=== PATIENT | male | born 1945 | race Caucasian/White ===

== ENCOUNTER 2021-08-17 08:43 | Inpatient (IN) | payer MEDICARE, OTHER ==
[~2021-08-17] VITALS: Ht 182.9 cm; Wt 79.4 kg
[2021-08-17] MEDS ORDERED: Morphine 4mg Syringe 4 MG/ML INJ IV STA (08:58)
[2021-08-17] MEDS ORDERED: ONDANSETRON HCL INJ 2MG/ML 2ML 2 MG/ML VIAL IV PRN (09:00)
[2021-08-17] MEDS ORDERED: NITROGLYCERIN 2% OINT 1 GM PKT TOP ONE (09:00)
[2021-08-17] MEDS: VALSARTAN 160 MG TAB PO SCH (09:27)
[2021-08-17] MEDS ORDERED: ACETAMINOPHEN 325 MG TAB PO ONE (09:30)
[2021-08-17] MEDS ORDERED: ACETAMINOPHEN 325 MG TAB ONE (09:42)
[2021-08-17] MEDS ORDERED: ONDANSETRON HCL INJ 2MG/ML 2ML 2 MG/ML VIAL ONE (09:43)
[2021-08-17] MEDS ORDERED: Morphine 4mg Syringe 4 MG/ML INJ ONE (09:43)
[2021-08-17] MEDS ORDERED: NITROGLYCERIN 2% OINT 1 GM PKT ONE (09:43)
[2021-08-17] MEDS ORDERED: ASPIRIN 325 MG TAB ONE (09:44)
[2021-08-17] MEDS ORDERED: ASPIRIN 81 MG CHEW TAB ONE (09:44)
[2021-08-17] MEDS ORDERED: FAMOTIDINE 20 MG/2 ML VIAL IV ONE ×2 (09:45→10:00)
[2021-08-17] MEDS ORDERED: ASPIRIN 81 MG CHEW TAB PO ONE (10:00)
[2021-08-17 12:53] VITALS: BP 138/76
[2021-08-17 13:32] VITALS: BP 138/76
[2021-08-17] MEDS ORDERED: FLOMAX0.4 MG PO (14:43)
[2021-08-17] MEDS ORDERED: JANUMET 50-1,01 EACH PO (14:43)
[2021-08-17] MEDS ORDERED: NORVASC5 MG PO (14:43)
[2021-08-17] MEDS ORDERED: LIPITOR20 MG PO (14:43)
[2021-08-17 16:11] LABS: CREATINE KINASE MB 64.9 ng/mL (0-5.0)
[2021-08-17] MEDS ORDERED: CLOPIDOGREL BISULFATE 75 MG TAB PO ONE (16:30)
[2021-08-17 16:32] VITALS: BP 117/75
[2021-08-17] MEDS ORDERED: ENOXAPARIN SOD INJ 60 MG/0.6 ML SYR SC ONE (17:00)
[2021-08-17] MEDS ORDERED: ENOXAPARIN SOD INJ 40 MG/0.4 ML SYR SC SCH (17:00)
[2021-08-17 20:00] VITALS: BP 129/81
[2021-08-17 21:00] VITALS: BP 129/81
[2021-08-17 21:58] LABS: CREATINE KINASE MB 77.5 ng/mL (0-5.0)
[2021-08-17] MEDS: ATORVASTATIN 40 MG TAB PO SCH (22:16)
[2021-08-18] VITALS (10 sets, daily range): BP systolic 101–141; BP diastolic 70–85
[2021-08-18 05:21] LABS: BASOPHILS % 0.3 % (0.0-1.0); EOSINOPHILS # (AUTO) 0.1 (0.0-0.4); HEMOGLOBIN 13.5 g/dL (14.0-18.0); LYMPHOCYTES # (AUTO) 2.3 (1.0-3.2); LYMPHOCYTES % 23.7 % (18.0-39.1); MEAN CORPUSCULAR HEMOGLOBIN 31.3 pg (28-32); MEAN CORPUSCULAR HGB CONC 34.6 g/dL (31-35); MEAN CORPUSCULAR VOLUME 90.5 fL (81-99); MONOCYTES # (AUTO) 0.8 (0.2-0.8); MONOCYTES % 7.7 % (4.4-11.3); NEUTROPHILS # (AUTO) 6.6 (2.1-6.9); NEUTROPHILS % 66.9 % (38.7-80.0); PLATELET COUNT 164 x10e3/uL (140-360); RED BLOOD COUNT 4.31 x10e6/uL (4.3-5.7)
[2021-08-18 05:46] LABS: ALBUMIN 3.7 g/dL (3.5-5.0); ALBUMIN/GLOBULIN RATIO 1.2 (0.8-2.0); ANION GAP 11.9 mmol/L (8-16); CHOL/HDL RATIO 3.5 (3.9-4.7); CREATININE, SERUM 1.09 mg/dL (0.72-1.25); POTASSIUM 3.9 mmol/L (3.5-5.1)
[2021-08-18 06:08] LABS: THYROID STIMULATING HORMONE 1.413 uIU/mL (0.350-4.940)
[2021-08-18] MEDS: ASPIRIN 81 MG ENTERIC COATED PO SCH (09:00)
[2021-08-18] MEDS ORDERED: FENTANYL CITRATE/PF 100MCG/2 ML INJ ONE (09:44)
[2021-08-18] MEDS ORDERED: MIDAZOLAM HCL 2 MG/2 ML VIAL ONE (09:44)
[2021-08-18] MEDS ORDERED: HEPARIN SOD (PORCINE) 1000 UNIT/ML 30ML ONE (09:44)
[2021-08-18] MEDS ORDERED: HEPARIN SOD/SOD CHLORIDE 2,000 ML ONE (09:45)
[2021-08-18] MEDS ORDERED: NITROGLYCERIN/D5W 200 MCG/ML 250 ML ONE (09:45)
[2021-08-18] MEDS ORDERED: SODIUM CHLORIDE 0.9% 1000ML 1,000 ML ONE (09:45)
[2021-08-18] MEDS ORDERED: IOPAMIDOL 370 MG/ML 200 ML INFUS..BTL INJ ONE ×2 (09:45→11:13)
[2021-08-18] MEDS ORDERED: LIDOCAINE HCL 2% LOCAL 20 ML VIAL ONE (09:45)
[2021-08-18] MEDS ORDERED: SODIUM CHLORIDE 0.9% 50ML 50 ML ONE (11:03)
[2021-08-18] MEDS ORDERED: BIVALRIUDIN 250 MG/VIAL VIAL IV ONE (11:03)
[2021-08-18] MEDS ORDERED: CLOPIDOGREL BISULFATE 75 MG TAB ONE (11:26)
[2021-08-18] MEDS ORDERED: ASPIRIN 81 MG CHEW TAB ONE (11:26)
[2021-08-18] MEDS ORDERED: SITAGLIPTIN PHOS PO SCH (17:00)
[2021-08-18] MEDS ORDERED: METFORMIN HCL PO SCH (17:00)
[2021-08-18] MEDS ORDERED: [UNRECOGNIZED DRUG - OTHER] PO SCH (17:00)
[2021-08-18] MEDS: TAMSULOSIN HCL 0.4 MG CAP PO SCH (17:32)
[2021-08-18] MEDS: AMLODIPINE BESYLATE 5 MG TAB PO SCH (17:32)
[2021-08-18] MEDS: ATORVASTATIN 40 MG TAB PO SCH (21:40)
[2021-08-19] VITALS: BP 123/70
[2021-08-19 04:40] VITALS: BP 119/63
[2021-08-19 05:15] LABS: BASOPHILS % 0.3 % (0.0-1.0); EOSINOPHILS # (AUTO) 0.1 (0.0-0.4); EOSINOPHILS % 1.5 % (0.0-6.0); HEMATOCRIT 37.8 % (38.2-49.6); HEMOGLOBIN 12.8 g/dL (14.0-18.0); LYMPHOCYTES # (AUTO) 2.3 (1.0-3.2); LYMPHOCYTES % 24.6 % (18.0-39.1); MEAN CORPUSCULAR HEMOGLOBIN 30.9 pg (28-32); MEAN CORPUSCULAR HGB CONC 33.9 g/dL (31-35); MEAN CORPUSCULAR VOLUME 91.3 fL (81-99); MONOCYTES # (AUTO) 0.8 (0.2-0.8); MONOCYTES % 9.1 % (4.4-11.3); NEUTROPHILS # (AUTO) 5.9 (2.1-6.9); NEUTROPHILS % 64.3 % (38.7-80.0); PLATELET COUNT 152 x10e3/uL (140-360); RED BLOOD COUNT 4.14 x10e6/uL (4.3-5.7); RED CELL DISTRIBUTION WIDTH 13.1 % (11.7-14.4)
[2021-08-19 05:36] LABS: ANION GAP 9.8 mmol/L (8-16); CALCIUM 8.6 mg/dL (8.4-10.2); CREATININE, SERUM 1.05 mg/dL (0.72-1.25); POTASSIUM 3.8 mmol/L (3.5-5.1)
[2021-08-19 08:00] VITALS: BP 107/70
[2021-08-19 08:03] VITALS: BP 107/70
[2021-08-19] MEDS: VALSARTAN 160 MG TAB PO SCH (08:41)
[2021-08-19] MEDS: AMLODIPINE BESYLATE 5 MG TAB PO SCH (08:41)
[2021-08-19] MEDS: ASPIRIN 81 MG ENTERIC COATED PO SCH (08:41)
[2021-08-19] MEDS: TAMSULOSIN HCL 0.4 MG CAP PO SCH (08:41)
[2021-08-19] MEDS ORDERED: CLOPIDOGREL BISULFATE 75 MG TAB PO SCH (09:00)
[2021-08-19] MEDS ORDERED: PLAVIX75 MG PO (10:49)
[2021-08-19] MEDS ORDERED: ASPIRIN EC81 MG PO (10:49)
[2021-08-19] MEDS ORDERED: DIOVAN160 MG PO (10:49)
[2021-08-19 11:02] VITALS: BP 116/65
== END 2021-08-19 12:27 | disposition home or self-care (01) | DRG 247 ==
LOC: FSED 08:53 → ERHOLD 09:12 → MED/SURG3 12:19 → OBSVTOIN 08-18 16:48
PROVIDERS: ADMIT Internal Medicine; ATTEND Internal Medicine
PROC: 027034Z Dilation of Coronary Artery, One Artery with Drug-eluting Intraluminal Device, Percutaneous Approach (ICD-10-PCS; principal; 2021-08-18)
PROC: 4A023N7 Measurement of Cardiac Sampling and Pressure, Left Heart, Percutaneous Approach (ICD-10-PCS; 2021-08-18)
PROC: B2111ZZ Fluoroscopy of Multiple Coronary Arteries using Low Osmolar Contrast (ICD-10-PCS; 2021-08-18)
DX: I21.4 Non-ST elevation (NSTEMI) myocardial infarction (principal); I25.10 Atherosclerotic heart disease of native coronary artery without angina pectoris; M25.531 Pain in right wrist; I10 Essential (primary) hypertension; E78.00 Pure hypercholesterolemia, unspecified; E11.9 Type 2 diabetes mellitus without complications; Z20.822 Contact with and (suspected) exposure to COVID-19
CPT/HCPCS: 36415; 71046; 80048; 80053; 80061; 82550; 82553; 82948; 84443; 84484; 85025; 92928; 93005; 93306; 93454; 99152; 99153; 99284; C1725; C1760; C1766; C1769; C1874; G0378; J0583; J1644; J1650; J2001; J2250; J2270; J2405; J3010; J7030; Q9967; U0002